=== PATIENT | female | born 1945 | race Caucasian/White ===

== ENCOUNTER 2017-07-16 14:13 | Outpatient (CLI) | payer MEDICARE, OTHER ==
--- NOTE | 2017-07-16 21:25 | RAD ---
LUMBAR SPINE THREE VIEWS: Date: 07-16-17 FINDINGS: No acute fracture or dislocation is seen. Pedicle screws are seen bilaterally at L3 through L5. Since a 2011 view of the sacrum and coccyx, the patient has had a synthetic disc placed at L4-5. There is also another piece of orthopedic hardware posterior to it. There is no area of bony destruction. The SI joints appear normal. IMPRESSION: Chronic changes, but no acute finding. POS: HOME
== END 2017-07-16 14:14 | disposition home or self-care (01) ==
LOC: BURRAD 14:13
PROVIDERS: ATTEND Nurse Practitioner
DX: S39.012A Strain of muscle, fascia and tendon of lower back, initial encounter (principal)
CPT/HCPCS: 72100